=== PATIENT | female | born 1950 | race Two or more races ===

== ENCOUNTER 2016-05-23 13:58 | Emergency (ER) | payer OTHER ==
[~2016-05-23] VITALS: Ht 160 cm; Wt 56.7 kg
[2016-05-23] MEDS ORDERED: TYLENOL EXTRA500 MG ORAL (15:21)
[2016-05-23 15:40] VITALS: BP_SYST 124; BP_SYST 133; BP_DIAS 81; BP_DIAS 82
--- NOTE | 2016-05-23 18:47 | Emergency Room Report ---
History of Present Illness General Chief Complaint: Multiple Trauma/Fall Source: Patient Present Illness HPI The patient is a 65-year-old female presenting with loss of consciousness, right head pain, and right hip pain after falling at work today. The patient states that she was cleaning a room, tripped on a blanket, and fell head first into a wall. The patient is unsure of how long she was unconscious. The patient now complains of a 10 out of 10 headache to the right side of the head and also 10 out of 10 dull ache to the right hip. The patient denies prior injury to these areas. The patient denies any other symptoms including nausea, vomiting, dizziness, blurred vision, numbness, tingling Allergies: Coded Allergies: No Known Allergies (Unverified , 05/23/16) Patient History Past Medical History: see triage record Pertinent Family History: none Reviewed Nursing Documentation: PMH: Agreed, PSxH: Agreed Nursing Documentation-PMH Past Medical History: No Stated History Review of Systems All Other Systems: negative except mentioned in HPI Physical Exam Vital Signs Date Time Temp Pulse Resp B/P Pulse Ox O2 Delivery O2 Flow Rate FiO2 05/23/16 14:14 98.4 76 16 133/82 97 Room Air Sp02 EP Interpretation: reviewed, normal General Appearance: no apparent distress, alert, GCS 15, non-toxic Head: normocephalic, atraumatic, other - There is tenderness to palpation over the right parietal region. Mild edema. No ecchymosis. No crepitus. No depressions. Eyes: bilateral eye PERRL, bilateral eye normal inspection ENT: hearing grossly normal, normal pharynx, no angioedema, normal voice Neck: full range of motion, supple, no bony tend, supple/symm/no masses Respiratory: chest non-tender, lungs clear, normal breath sounds, speaking full sentences Cardiovascular #1: regular rate, rhythm, no edema Musculoskeletal: back normal, digits/nails normal, gait/station normal, normal range of motion, tender - TTP over R lateral hip Neurologic: alert, oriented x3, responsive, motor strength/tone normal, sensory intact, speech normal Psychiatric: judgement/insight normal, memory normal, mood/affect normal, no suicidal/homicidal ideation Skin: no rash, warm/dry, well hydrated, other - ecchymosis of R lateral hip Lymphatic: no adenopathy Medical Decision Making PA Attestation Dr. Barroso is my supervising physician. Patient management was discussed with my supervising physician Diagnostic Impression: Primary Impression: Contusion, hip Additional Impression: Contusion of scalp ER Course The patient is a 65-year-old female presenting with loss of consciousness, right head pain, and right hip pain after falling at work today Differential diagnosis considered: Concussion, intracranial hemorrhage, migraine , fracture, contusion Physical exam: No apparent distress A&Ox3 Head is normocephalic atraumatic. Tenderness to palpation over the right parietal region. No ecchymosis. No depressions. No crepitus. Right hip: Ecchymosis to the lateral hip. Tender to palpation. Normal gait. Full active range of motion. No leg length discrepancy The patient is given Tylenol for pain. X-ray of the hip is unremarkable. CT scan of head unremarkable The patient will be discharged and will followup with workers compensation and primary care doctor. ER precautions are given Other X-Ray Diagnostic Results Other X-Ray Diagnostic Results : X-Ray Ordered: R hip Date: May 23, 2016 EP Interpretation: Yes Findings: no fractures, no dislocation, no soft tissue swelling Number of Views: 2 PA Scribe Text I am acting as scribe for my supervising physician. My supervising physician's interpretation of the R hip xrays are there are no fractures, dislocations or soft tissue swelling. CT/MRI/US Diagnostic Results CT/MRI/US Diagnostic Results : Imaging Test Ordered: CT head Impression no acute findings Last Vital Signs Date Time Temp Pulse Resp B/P Pulse Ox O2 Delivery O2 Flow Rate FiO2 05/23/16 14:14 98.4 76 16 133/82 97 Room Air Status: improved Disposition: HOME, SELF-CARE Condition: Improved Scripts Acetaminophen* (TYLENOL EXTRA STRENGTH*) 500 Mg Tablet 500 MG ORAL Q8H Y for Prn Headache/Temp > 101, #30 TAB 0 Refills Prov: KIMO LOJA 05/23/16 Patient Instructions: Facial or Scalp Contusion, Contusion Additional Instructions: I discussed my findings with the patient. All questions and concerns have been answered. Treatment and medication compliance have been addressed. I advised the patient that they need to follow up with PMD in 3-5 days. Return to ED if symptoms worsen, new symptoms arise, or if needed for any reason. Patient verbalized understanding of discharge instructions. KIMO LOJA May 23, 2016 18:47
--- NOTE | 2016-05-24 08:54 | Diagnostic Imaging Report ---
Indication: PAIN, head trauma Technique: Continuous helical CT scanning of the head was performed without intravenous contrast material. Axial and coronal 5 mm sections were generated. Radiation dose was minimized using automated exposure control Dose: Total Dose Length Product - DLP [address] Dose Index - CTDIvol(s) 70.38 mGy. Comparison: None Findings: The ventricular system is normal in size and configuration. There is no shift of midline structures. No abnormal extra-axial fluid collections are noted. There is no evidence of intracerebral bleeding. No other abnormal high or low density areas are noted within the brain. The cranium is intact. Visualized orbits and sinuses are unremarkable Impression: Normal CT scan of the head without contrast material. This agrees with the preliminary interpretation provided overnight by Dr. Hadley The CT scanner at [facility] is accredited by the [employer] and the scans are performed using protocols designed to limit radiation exposure to as low as reasonably achievable to attain images of sufficient resolution adequate for diagnostic evaluation.
--- NOTE | 2016-05-24 09:53 | Diagnostic Imaging Report ---
Indication: PAIN Technique: 2 views of the right hip Comparison: Findings: There are degenerative proliferative changes of the right acetabulum. No acute fractures. No dislocations. Joint spaces are preserved. Impression: Degenerative changes. No acute bony trauma
== END 2016-05-23 15:40 | disposition home or self-care (01) ==
LOC: EMR 14:38
DX: S70.01XA Contusion of right hip, initial encounter (principal); S00.03XA Contusion of scalp, initial encounter; W01.0XXA Fall on same level from slipping, tripping and stumbling without subsequent striking against object, initial encounter; Y92.59 Other trade areas as the place of occurrence of the external cause; Y99.0 Civilian activity done for income or pay; R51 Headache
CPT/HCPCS: 70450; 99284

== ENCOUNTER → 2016-09-09 | Outpatient (CLI) | payer BC ==
[~2016-09-09] MED LIST: TYLENOL EXTRA500 MG ORAL
--- NOTE | 2016-09-09 16:06 | Diagnostic Imaging Report ---
Indications: Bilateral knee pain Technique: Two-view series right knee, 3 view series left knee. Findings: Comparison: None No fracture, dislocation, joint space widening or effusion, lytic destruction, periosteal reaction , surrounding soft tissue swelling/foreign body/gas, or other acute changes are identified. Small osteophytes present at the margins of the patellofemoral joint spaces and atop the tibial spines. No significant joint space narrowing. No additional chronic changes demonstrated. IMPRESSION: No evidence of acute abnormality in either knee Mild bilateral osteoarthritis.
== END | disposition home or self-care (01) ==
LOC: RAD 13:07
DX: M17.0 Bilateral primary osteoarthritis of knee (principal)